=== PATIENT | male | born 1990 | race Caucasian/White ===

== ENCOUNTER 2025-10-13 06:49 | Inpatient (IN) | payer BC, MEDICAID ==
[~2025-10-13] VITALS: Ht 172.7 cm; Wt 80.7 kg
[2025-10-13] VITALS (55 sets, daily range): BP systolic 98–127; BP diastolic 56–88; PULSE 70–112; RESP 8–24; TEMP 36.7–37.1; O2SAT 94–100
[2025-10-13] MEDS: DEXT 5%/LACTATED RINGERS 1,000 ML IV SCH (03:00)
[~2025-10-13 06:49] MED LIST: ACETAMINOPHEN 1000MG/100ML 100 ML IV ONE; GENTAMICIN SULF 40MG/ML 2ML VIAL ONE; LACTATED RINGERS 1,000 ML IV SCH; LIDOCAINE HCL/EPINEPHRINE 1%-EPI 1:100,000 20ML VIAL ONE; THROMBIN (BOVINE) 5000 UNITS/VIAL TOP ONE
[2025-10-13] MEDS ORDERED: ACETAMINOPHEN 1000MG/100ML 100 ML IV ONE (06:54)
[2025-10-13] MEDS ORDERED: FAMOTIDINE 20MG/2ML VIAL IV ONE (06:55)
[2025-10-13] MEDS ORDERED: ROCURONIUM BROMIDE 10MG/ML VIAL 5ML IV ONE (07:19)
[2025-10-13 07:22] LABS: CLARITY URINE CLEAR (CLEAR); COLOR URINE YELLOW (YELLOW); GLUCOSE URINE NEGATIVE (NEGATIVE); KETONES URINE NEGATIVE (NEGATIVE); LEUKOCYTE ESTERASE URINE 1+ (NEGATIVE); NITRITE URINE NEGATIVE (NEGATIVE); OCCULT BLOOD URINE NEGATIVE (NEGATIVE); PH URINE 5.5 (4.5-8.0); PROTEIN URINE NEGATIVE (NEGATIVE); SPECIFIC GRAVITY URINE 1.026 (1.005-1.030); UROBILINOGEN URINE 0.2 E.U./dL (0.2-1.0)
[2025-10-13 07:26] LABS: CREATININE 1.0 mg/dL (0.6-1.3); PROTEIN TOTAL 7.2 g/dL (6.0-8.3); UREA NITROGEN BLOOD 8 mg/dL (9-23)
[2025-10-13 07:28] LABS: ASPARTATE AMINOTRANSFERASE 27 IU/L (<34); BILIRUBIN TOTAL 0.5 mg/dL (0.1-1.0)
[2025-10-13] MEDS ORDERED: KETAMINE HCL 50 MG/ML 10ML ONE (07:33)
[2025-10-13 08:13] LABS: SQUAMOUS EPITHELIAL CELL URINE 1+ /lpf (RARE/1+)
[2025-10-13 08:14] LABS: CALCIUM OXALATE CRYSTALS URINE 1+ /lpf
[2025-10-13 08:15] LABS: RBC URINE 0-2 /hpf (0-2)
[2025-10-13 08:16] LABS: BACTERIA URINE 2+
[2025-10-13] MEDS ORDERED: LABETALOL 5MG/ML 4ML INJ IV PRN (09:00)
[2025-10-13] MEDS ORDERED: HYDRALAZINE 20MG/ML VIAL IV PRN ×2 (09:00)
[2025-10-13] MEDS ORDERED: NALOXONE HCL 0.4MG/ML VIAL IV PRN (10:15)
[2025-10-13] MEDS ORDERED: NICARDIPINE 100 MG in SODIUM CHLORIDE 0.9% 60 ML IV PRN (11:00)
[2025-10-13] MEDS: MORPHINE SULFATE 4 MG/ML INJ (FOR IV/IM USE) IV PRN (11:09)
[2025-10-13] MEDS: HYDROMORPHONE HCL/PF 1MG/ML INJ IV PRN (13:10)
[2025-10-13] MEDS: ONDANSETRON HCL 4MG/2ML INJ IV PRN ×2 (13:13→18:27)
[2025-10-13] MEDS ORDERED: CEFAZOLIN SODIUM 1000MG/VIAL IV SCH (14:00)
[2025-10-13] MEDS: CEFAZOLIN 1000MG PREMIX 50 ML IV SCH (14:28)
[2025-10-14] VITALS (91 sets, daily range): BP systolic 101–145; BP diastolic 49–91; PULSE 74–111; RESP 9–22; TEMP 36.7–37.1; O2SAT 94–100
[2025-10-14] MEDS: HYDROCODONE/ACETAMINOPHEN 7.5/325MG TABLET PO PRN (04:32)
[2025-10-14] MEDS: SODIUM CHLORIDE 0.9% 500 ML IV ONE (06:16)
[2025-10-15] VITALS: BP 128/86; PULSE 105; RESP 18; TEMP 36.4; O2SAT 98
[2025-10-15 04:00] VITALS: BP 104/63; PULSE 95; RESP 18; TEMP 35.6; O2SAT 98
[2025-10-15 06:05] LABS: CREATININE 0.9 mg/dL (0.6-1.3); UREA NITROGEN BLOOD 7 mg/dL (9-23)
[2025-10-15 06:07] LABS: PHOSPHORUS 3.5 mg/dL (2.5-4.9)
[2025-10-15 06:25] LABS: BASOPHILS % 0.7 % (0.0-2.0); EOSINOPHILS % 1.6 % (0.0-5.0); HEMATOCRIT. 35.9 % (42.0-52.0); HEMOGLOBIN. 11.8 g/dL (14.0-18.0); LYMPHOCYTES % 17.5 % (20.0-50.0); MEAN PLATELET VOLUME 9.5 fl (7.4-10.4); MONOCYTES % 7.0 % (2.0-8.0); NEUTROPHILS % 73.2 % (40.0-76.0); PLATELET 228 x1000/uL (130-400); RED BLOOD CELL COUNT 4.44 mill/uL (4.7-6.1); RED CELL DISTRIBUTION WIDTH 15.0 % (11.6-14.6)
[2025-10-15 08:00] VITALS: BP 130/90; PULSE 99; RESP 18; TEMP 36.2; O2SAT 98
[2025-10-15 12:00] VITALS: BP 124/84; PULSE 100; RESP 18; TEMP 36.3; O2SAT 100
[2025-10-15 16:00] VITALS: BP 126/85; PULSE 102; RESP 18; TEMP 36.3; O2SAT 99
[2025-10-15 20:00] VITALS: BP 139/91; PULSE 105; RESP 20; TEMP 36.2; O2SAT 100
[2025-10-16] VITALS (7 sets, daily range): BP systolic 120–138; BP diastolic 61–90; PULSE 89–108; RESP 18–20; TEMP 35.6–36.4; O2SAT 98–100
== END 2025-10-16 20:30 | disposition home or self-care (01) | DRG 451 ==
LOC: OR 06:49 → MICUSO 10:47 → 6WST 10-14 22:40
PROVIDERS: ADMIT Neurological Surgery; ATTEND Neurological Surgery
PROC: 0SG3071 Fusion of Lumbosacral Joint with Autologous Tissue Substitute, Posterior Approach, Posterior Column, Open Approach (ICD-10-PCS; principal; 2025-10-13)
PROC: 00NY0ZZ Release Lumbar Spinal Cord, Open Approach (ICD-10-PCS; 2025-10-13)
PROC: 01NB0ZZ Release Lumbar Nerve, Open Approach (ICD-10-PCS; 2025-10-13)
PROC: 01NR0ZZ Release Sacral Nerve, Open Approach (ICD-10-PCS; 2025-10-13)
PROC: 0SB40ZZ Excision of Lumbosacral Disc, Open Approach (ICD-10-PCS; 2025-10-13)
PROC: 4A11X4G Monitoring of Peripheral Nervous Electrical Activity, Intraoperative, External Approach (ICD-10-PCS; 2025-10-13)
DX: M51.16 Intervertebral disc disorders with radiculopathy, lumbar region (principal); G82.20 Paraplegia, unspecified; M43.16 Spondylolisthesis, lumbar region; M47.26 Other spondylosis with radiculopathy, lumbar region
CPT/HCPCS: 36415; 72100; 76000; 80048; 80053; 81003; 83735; 84100; 85025; 86850; 86900; 87070; 87075; 88304; 88311; 93970; 95863; 95925; 95926; 95928; 95929; 97112; 97116; 97162; 97166; 97530; 97535; A4615; J0690; J1171; J1308; J1580; J2004; J2270; J2405; J3490; J7121; C1713; J0131